=== PATIENT | male | born 1985 | race African-American/Black ===

== ENCOUNTER 2022-06-28 09:48 | Emergency (ER) | payer MEDICAID, SELFPAY ==
--- NOTE | 2022-06-28 09:51 | ECG_ITS ---
Test Reason : chest pain Blood Pressure : / mmHG Vent. Rate : 068 BPM Atrial Rate : 068 BPM P-R Int : 164 ms QRS Dur : 110 ms QT Int : 406 ms P-R-T Axes : 067 -15 030 degrees QTc Int : 431 ms Normal sinus rhythm Normal ECG No previous ECGs available Referred By: Generic ED Physician Electronically Signed By:Carlito Nagel
[2022-06-28 10:52] VITALS: BP 147/87; PULSE 77; RESP 20; TEMP 36.1; O2SAT 97; BMI 46.2
[2022-06-28 11:16] LABS: MANUAL DIFF FLAG NO
[2022-06-28 11:18] LABS: Basophils Absolute Auto 0.1 X10*3/uL (0.0-0.2); Basophils Percent Auto 0.8 % (0-2); Eosinophils Absolute Auto 0.4 X10*3/uL (0.0-0.4); Hematocrit 45.5 % (42.0-52.0); Hemoglobin 14.3 g/dl (14.0-18.0); Imm Gran Abs Auto 0.03 X10*3/uL (0.00-0.03); Imm Gran Pct Auto 0.3 % (0.0-0.4); Lymphocytes Absolute Auto 2.8 X10*3/uL (1.2-4.9); Lymphocytes Percent Auto 23.5 % (20-40); Mean Corpuscular HGB Conc 31.4 g/dl (31.0-36.0); Mean Corpuscular Hemoglobin 27.9 pg (27.0-33.0); Mean Corpuscular Volume 88.9 fL (80.0-98.0); Mean Platelet Volume 10.7 fL (9.4-12.4); Monocytes Absolute Auto 0.8 X10*3/uL (0.1-1.2); Monocytes Percent Auto 6.9 % (2-11); Neutrophils Absolute Auto 7.8 x10*3/uL (2.0-8.3); Neutrophils Percent Auto 65.5 % (45-73); Platelet Count 307 X10*3/uL (160-400); Red Blood Count 5.12 X10*6/uL (4.60-5.80); Red Cell Distribution Width 14.6 % (11.0-16.0); White Blood Count 11.9 X10*3/uL (4.8-10.8)
[2022-06-28 11:35] LABS: Anion Gap 12 (12-20); Blood Urea Nitrogen 14 mg/dL (9-16); Calcium 9.3 mg/dL (8.4-10.2); Carbon Dioxide 33 mmol/L (22-29); Chloride 105 mmol/L (96-108); Creatinine Clr Calc Pharmacy 163.1; Estimated Glomerular Filt Rate > 60; Glucose Random 95 mg/dL (60-115); Potassium 4.4 mmol/L (3.3-5.1); Sodium 146 mmol/L (135-145)
[2022-06-28 11:44] LABS: Troponin-I High Sensitivity 3.9 ng/L (<3.5-35.0)
[2022-06-28 12:28] VITALS: BP 146/87; PULSE 76; RESP 18; TEMP 36.9; O2SAT 98
[2022-06-28 12:37] VITALS: PULSE 75
[2022-06-28 14:16] VITALS: BP 135/69; PULSE 68; RESP 20; TEMP 36.8; O2SAT 98
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
[2022-06-28 14:55] LABS: B Type Natriuretic Peptide < 10 pg/mL (<100)
== END 2022-06-28 15:25 | disposition home or self-care (01) ==
PROVIDERS: Emergency Provider Student in an Organized Health Care Education/Training Program
DX: F41.9 Anxiety disorder, unspecified (principal); R53.83 Other fatigue; R06.02 Shortness of breath; G47.33 Obstructive sleep apnea (adult) (pediatric); E66.3 Overweight; Z68.42 Body mass index [BMI] 45.0-49.9, adult; Z99.89 Dependence on other enabling machines and devices; Z79.899 Other long term (current) drug therapy
CPT/HCPCS: 36415; 80048; 83880; 84484; 85025; 93005; 99283; 99285